=== PATIENT | male | born 1970 | race American Indian/Alaskan Native ===

== ENCOUNTER 2021-12-04 08:37 | Outpatient (CLI) | payer MEDICARE ==
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
== END 2021-12-04 08:38 | disposition home or self-care (01) ==
LOC: XRAY 08:37
PROVIDERS: ATTEND Orthopaedic Surgery
DX: Z18.10 Retained metal fragments, unspecified (principal); W34.00XA Accidental discharge from unspecified firearms or gun, initial encounter

== ENCOUNTER 2022-01-01 06:09 | Day surgery (SDC) | payer MEDICARE ==
[2022-01-01] MEDS ORDERED: LACTATED RINGERS 1,000 ML ONE (06:48)
[2022-01-01] MEDS ORDERED: propofoL 200 MG/20 ML VIAL IV ONE (07:19)
[2022-01-01] MEDS ORDERED: LIDOCAINE MPF (2%) 20 MG/1 ML VIAL 5 ML ONE (07:19)
[2022-01-01] MEDS ORDERED: fentaNYL 100 MCG/2 ML INJ ONE (07:19)
[2022-01-01] MEDS ORDERED: HYDROmorphone 1 MG/1 ML INJ IV PRN (07:33)
--- NOTE | 2022-01-01 07:34 | Anesthesia Consultation ---
Anesthesia Consult and Med Hx Date of service: 01/01/22 - Airway Anesthetic Teeth Evaluation: Edentulous ROM Head & Neck: Adequate Mental/Hyoid Distance: Adequate Mallampati Class: Class II Intubation Access Assessment: Probably Good - Pulmonary Exam CTA: Yes - Cardiac Exam Cardiac Exam: RRR - Pre-Operative Health Status ASA Pre-Surgery Classification: ASA2 Proposed Anesthetic Plan: General - Pulmonary Hx Smoking: No Hx Asthma: No Hx Respiratory Symptoms: No Hx Sleep Apnea: No (FRANCIA PRE SCREEN HIGH RISK) - Cardiovascular System Hx Hypertension: Yes (took Amlodipine today) Hx Heart Attack/AMI: No - Central Nervous System Hx Neuromuscular Disorder: No (GOUT) Hx Back Pain: Yes (RA affecting back only ) Hx Psychiatric Problems: No - Gastrointestinal Hx Gastroesophageal Reflux Disease: No - Endocrine Hx Renal Disease: No Hx Liver Disease: No Hx Non-Insulin Dependent Diabetes: Yes (Controlled with diet/exercise) Hx Thyroid Disease: No - Hematic Hx Anemia: No - Other Systems Hx Alcohol Use: No Hx Substance Use: No Hx Cancer: No - Additional Comments Anesthesia Medical History Comments: No hx of anesthesia complications
--- NOTE | 2022-01-01 07:34 | Anesthesia Day of Surgery ---
Anesthesia Day of Surgery - Day of Surgery Patient Examined: Yes Patient H&P Reviewed: Yes Patient is NPO: Yes
[2022-01-01] MEDS ORDERED: ONDANSETRON 4 MG/2 ML INJ IV PRN (08:00)
[2022-01-01] MEDS ORDERED: LACTATED RINGERS 1,000 ML IV SCH (08:00)
[2022-01-01] MEDS ORDERED: ceFAZolin 1 GM VIAL ONE ×2 (08:29→08:30)
[2022-01-01] MEDS ORDERED: dexAMETHasone 20 MG/5 ML VIAL ONE (08:34)
[2022-01-01] MEDS ORDERED: KETOROLAC 30 MG/1 ML INJ ONE (08:34)
[2022-01-01] MEDS ORDERED: ONDANSETRON 4 MG/2 ML INJ ONE (08:34)
[2022-01-01] MEDS: HYDROmorphone 1 MG/1 ML INJ IV PRN ×2 (09:10→09:20)
--- NOTE | 2022-01-01 09:22 | Post Anesthesia Evaluation ---
- Post Anesthesia Evaluation Patient Participated: Yes Airway Patent: Yes Stable Respiratory Function: Yes Nausea/Vomiting: No Temp > 96.8F: Yes Pain Manageable: Yes Adequeate Hydration: Yes Anesthesia Complications: No Block Receding Appropriately: Not Applicable Patient on Ventilator: No
[2022-01-01 10:14] VITALS: BP 141/81
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
== END 2022-01-01 10:25 | disposition short-term general hospital (02) ==
LOC: EDBD → OR 06:09
PROVIDERS: ATTEND Orthopaedic Surgery
DX: S70.352A Superficial foreign body, left thigh, initial encounter (principal); I10 Essential (primary) hypertension; M19.90 Unspecified osteoarthritis, unspecified site; E11.9 Type 2 diabetes mellitus without complications; Z20.822 Contact with and (suspected) exposure to COVID-19; Z18.89 Other specified retained foreign body fragments; Z79.899 Other long term (current) drug therapy; Z98.890 Other specified postprocedural states; X58.XXXA Exposure to other specified factors, initial encounter; Y93.89 Activity, other specified; Y92.89 Other specified places as the place of occurrence of the external cause; Y99.8 Other external cause status
CPT/HCPCS: 20103; 82962; J0690; J1100; J1170; J1885; J2405; J2704; J3010; J3490; J7120; U0003